=== PATIENT | male | born 1975 | race Two or more races ===

== ENCOUNTER → 2019-01-02 | Outpatient (CLI) | payer MEDICARE, MEDICAID ==
[~2019-01-02] MED LIST: FLUO10CA15 PO; LAMO25TA2 PO; QUET25TA37 PO
[2019-01-02 12:15] LABS: Basophils # (auto) 0.1 uL; Eosinophils # (auto) 0.3 uL; Eosinophils % (auto) 5.7 % (0.0-7.0); Hemoglobin 13.3 g/dL (13.5-17.5); Monocytes # (auto) 0.7 uL; Red Cell Distribution Width 13.8 % (11.8-14.3); Urine Bacteria NONE SEEN /hpf (None Seen); Urine Blood 2+ /uL (Negative); Urine Hyaline Cast FEW /lpf (0 - 2); Urine Mucus FEW (None Seen); Urine Specific Gravity 1.023 (1.001-1.035); Urine WBC 4 /hpf (0 - 3); White Blood Cell 5.4 10^3/uL (4.4-10.8)
[2019-01-02 12:17] LABS: Basophils % (auto) 1.3 % (0.0-2.0); Hematocrit 42.1 % (41.0-53.0); Lymphocytes % (auto) 36.5 % (10.0-50.0); Mean Corpuscular Hemoglobin 22.3 pg (28.0-32.0); Mean Corpuscular Hgb Conc. 31.5 g/dL (32.0-36.0); Mean Corpuscular Volume 70.8 fL (80.0-100.0); Monocytes % (auto) 13.7 % (0.0-12.0); Neutrophils # (auto) 2.3 uL; Neutrophils % (auto) 42.8 % (37.0-80.0); Nucleated Red Blood Cells % 0.2 %; Platelet Count (auto) 251 10^3/uL (140-450); Red Blood Cells 5.95 10^6/uL (4.5-5.90)
[2019-01-02 13:25] LABS: % Iron Saturation 15.5 % (20-55)
[2019-01-02 13:32] LABS: Potassium 3.6 mmol/L (3.5-5.1)
[2019-01-02 13:44] LABS: Albumin 4.4 g/dL (3.4-5.0); BUN/Creatinine Ratio 11.5; Calcium 8.7 mg/dL (8.5-10.1)
[2019-01-02 13:52] LABS: Bilirubin, Total 0.3 mg/dL (0.2-1.0); Total Protein 7.5 g/dL (6.4-8.2)
[2019-01-02 14:48] LABS: Protein, Urine 28.4 mg/dL (0.0-11.9)
== END | disposition home or self-care (01) ==
LOC: LAB 11:32
PROVIDERS: ATTEND Internal Medicine Nephrology
DX: D50.9 Iron deficiency anemia, unspecified (principal); R31.9 Hematuria, unspecified; R79.89 Other specified abnormal findings of blood chemistry; R94.6 Abnormal results of thyroid function studies
CPT/HCPCS: 36415; 80053; 80061; 81001; 82570; 83036; 83540; 83550; 84156; 84443; 85025

== ENCOUNTER → 2019-02-05 | Outpatient (CLI) | payer MEDICARE, MEDICAID ==
[2019-02-05 13:30] LABS: Magnesium 2.3 mg/dL (1.6-2.6); Phosphorus 2.8 mg/dL (2.5-4.90); Uric Acid 8.1 mg/dL (3.5-7.2)
== END | disposition home or self-care (01) ==
LOC: LAB 12:05
PROVIDERS: ATTEND Internal Medicine Nephrology
DX: N20.0 Calculus of kidney (principal); E03.9 Hypothyroidism, unspecified; Z79.899 Other long term (current) drug therapy
CPT/HCPCS: 36415; 83735; 84100; 84439; 84443; 84550

== ENCOUNTER → 2019-02-14 | Outpatient (CLI) | payer MEDICARE, MEDICAID | END | disposition home or self-care (01) | LOC: LAB 13:06 | PROVIDERS: ATTEND Internal Medicine Nephrology | DX: N20.0 Calculus of kidney (principal); E03.9 Hypothyroidism, unspecified | CPT/HCPCS: 82507 ==

== ENCOUNTER 2020-02-12 01:39 | Inpatient (IN) | payer MEDICARE, MEDICAID ==
[~2020-02-12] VITALS: Ht 175.3 cm; Wt 77.3 kg
[2020-02-12 02:22] LABS: Basophils # (auto) 0.1 10 ^3/uL (0-0.2); Basophils % (auto) 0.6 % (0.0-2.0); Eosinophils # (auto) 0.1 10 ^3/uL (0-0.8); Eosinophils % (auto) 0.4 % (0.0-7.0); Mean Corpuscular Hgb Conc. 31.2 g/dL (32.0-36.0); Nucleated Red Blood Cells % 0.1 %; White Blood Cell 15.3 10^3/uL (4.4-10.8)
[2020-02-12 02:23] LABS: Hematocrit 47.5 % (41.0-53.0); Hemoglobin 14.8 g/dL (13.5-17.5); Lymphocytes # (auto) 1.1 10 ^3/uL (0.4-5.4); Lymphocytes % (auto) 7.2 % (10.0-50.0); Mean Corpuscular Hemoglobin 21.8 pg (28.0-32.0); Monocytes # (auto) 1.4 10 ^3/uL (0-1.3); Monocytes % (auto) 9.3 % (0.0-12.0); Neutrophils # (auto) 12.6 10 ^3/uL (1.6-8.6); Neutrophils % (auto) 82.5 % (37.0-80.0); Platelet Count (auto) 299 10^3/uL (140-450); Red Blood Cells 6.78 10^6/uL (4.5-5.90); Red Cell Distribution Width 13.7 % (11.8-14.3)
[2020-02-12 02:25] LABS: Urine Bacteria NONE SEEN /hpf (None Seen); Urine Blood 1+ /uL (Negative); Urine Mucus FEW (None Seen); Urine Specific Gravity 1.018 (1.001-1.035); Urine Sperm PRESENT /hpf (None Seen); Urine WBC 4 /hpf (0 - 3)
[2020-02-12 02:43] LABS: Albumin 4.6 g/dL (3.4-5.0); Calcium 9.3 mg/dL (8.5-10.1); Potassium 4.1 mmol/L (3.5-5.1)
[2020-02-12 02:47] LABS: BUN/Creatinine Ratio 6.3; Bilirubin, Total 0.8 mg/dL (0.2-1.0); Total Protein 8.4 g/dL (6.4-8.2)
[2020-02-12] MEDS ORDERED: PIPERACILLIN-TAZOB 3.375GM 100 ML IV ONE (04:15)
[2020-02-12] MEDS ORDERED: MORPHINE SULFATE 4 MG/ML SYR/VIAL IV ONE (04:15)
[2020-02-12] MEDS ORDERED: ONDANSETRON HCL 4 MG/2 ML VIAL IV ONE (04:15)
[2020-02-12] MEDS ORDERED: metroNIDAZOLE 500MG/100ML 100 ML IV ONE (04:15)
[2020-02-12] MEDS ORDERED: SODIUM CHLORIDE 0.9% 1,000 ML IV ONE ×2 (04:15→19:30)
[2020-02-12 05:03] LABS: INR 0.97 (0.9-1.15); Partial Thromboplastin Time 29.6 sec (23.0-31.2)
[2020-02-12] MEDS ORDERED: SODIUM CHLORIDE 0.9% 1,000 ML IV SCH (07:45)
[2020-02-12] MEDS ORDERED: ONDANSETRON HCL 4 MG/2 ML VIAL IV PRN ×2 (07:45→12:00)
[2020-02-12] MEDS: SODIUM CHLORIDE 0.9% 1,000 ML IV SCH ×2 (08:03→23:22)
[2020-02-12] MEDS: cefTRIAXone 1GM/50ML D5W 50 ML IV SCH (08:09)
[2020-02-12] MEDS: MORPHINE SULF INJ 2 MG/ML SYRINGE 1ML IV PRN ×4 (08:10→23:29)
[2020-02-12 09:00] VITALS: BP 144/81
--- NOTE | 2020-02-12 09:30 | NUR ---
Telemetry admit from ER EMIGDIO HANSON admitted to Telemetry unit after SBAR received. Patient oriented to MARSHAL CHUNG RN primary RN, unit, room, bed, and unit policies regarding patient care and visiting hours. Patient weighed by bedscale and encouraged to call if they need something. All questions and concerns addressed, patient verbalized understanding.
[2020-02-12 09:59] VITALS: BP 144/81
[2020-02-12] MEDS: PANTOPRAZOLE 40 MG/10 ML VIAL INJ IV SCH (10:00)
--- NOTE | 2020-02-12 10:00 | NUR ---
Off unit down to surgery.
[2020-02-12] MEDS ORDERED: ceFAZolin 1GM/50ML 50 ML IV ONE (10:12)
[2020-02-12] MEDS ORDERED: SUCCINYLCHOLINE CHLORIDE 20 MG/ML 10ML VIAL IV ONE (10:30)
[2020-02-12] MEDS ORDERED: NEOSTIGMINE 1 MG/ML INJ (10mg/10ML VIAL) IV ONE (10:30)
[2020-02-12] MEDS ORDERED: GLYCOPYRROLATE 0.2 MG/ML 1ML VIAL IV ONE (10:30)
[2020-02-12] MEDS ORDERED: fentaNYL CITRATE 100 MCG/2 ML VL ONE ×2 (10:44→11:54)
[2020-02-12] MEDS ORDERED: ROCURONIUM 10MG/ML 10ML VIAL IV ONE (10:44)
[2020-02-12] MEDS ORDERED: MIDAZOLAM HCL 1MG/1ML-2 ML VIAL ONE (10:44)
[2020-02-12] MEDS ORDERED: PROPOFOL 10 MG/ML 20 ML IV ONE (10:49)
[2020-02-12] MEDS ORDERED: QUET200T44 PO (11:02)
[2020-02-12] MEDS ORDERED: FLUO1TAB14 PO (11:02)
[2020-02-12] MEDS ORDERED: LAMO200T34 PO (11:02)
[2020-02-12] MEDS ORDERED: HYDROmorphone HCL 2 MG/ML VL ONE (11:16)
[2020-02-12] MEDS ORDERED: hydrALAZINE HCL 20 MG/ML VL IV PRN (12:00)
[2020-02-12] MEDS ORDERED: ePHEDrine SULFATE 50 MG/ML AMP IV PRN (12:00)
[2020-02-12] MEDS ORDERED: HYDROmorphone HCL 2 MG/ML VL IV PRN ×2 (12:00)
[2020-02-12 13:00] VITALS: BP 140/83
[2020-02-12] MEDS ORDERED: metroNIDAZOLE 500MG/100ML 100 ML IV SCH (14:00)
[2020-02-12] MEDS: metroNIDAZOLE 500MG/100ML 100 ML IV SCH ×2 (15:04→23:22)
[2020-02-12 17:00] VITALS: BP 148/95
[2020-02-12] MEDS ORDERED: MANNITOL FTV 25% 12.5 GM/50 ML 50 ML IV ONE (18:30)
[2020-02-12] MEDS ORDERED: TAMSULOSIN HYDROCHLORIDE 0.4 MG CAP PO ONE (18:30)
--- NOTE | 2020-02-12 19:15 | NUR ---
Opening Shift Note Assumed care of patient, awake and alert x4. No S/S of distress/SOB. POC explained to patient and all questions and concerns addressed. Bed in lowest, locked position and call light within reach. Will continue care. Instructed on POC and to call for assist PRN, will continue to monitor for changes Q1hr and PRN.
[2020-02-12 22:08] VITALS: BP 132/94
--- NOTE | 2020-02-12 23:29 | NUR ---
Pain medication given at pain score of 8/10. Patient tolerated.
--- NOTE | 2020-02-13 02:35 | NUR ---
Patient asleep right now. No Sob and acute distress seen.
[2020-02-13] MEDS: MORPHINE SULF INJ 2 MG/ML SYRINGE 1ML IV PRN ×4 (03:53→22:19)
[2020-02-13 05:00] VITALS: BP 143/91
[2020-02-13] MEDS: metroNIDAZOLE 500MG/100ML 100 ML IV SCH ×3 (05:23→22:18)
[2020-02-13 06:11] LABS: Calcium 8.3 mg/dL (8.5-10.1); Potassium 3.5 mmol/L (3.5-5.1)
[2020-02-13 06:14] LABS: BUN/Creatinine Ratio 8.9
--- NOTE | 2020-02-13 06:48 | NUR ---
Closing Shift Event Patient resting in bed. No SOB and cute distress seen. Bed in low position, non skid socks in place, call light within reach.
[2020-02-13 06:56] LABS: Basophils # (auto) 0 10 ^3/uL (0-0.2); Eosinophils # (auto) 0 10 ^3/uL (0-0.8); Mean Corpuscular Hemoglobin 22.1 pg (28.0-32.0)
[2020-02-13 06:58] LABS: Basophils % (auto) 0.1 % (0.0-2.0); Hematocrit 41.7 % (41.0-53.0); Lymphocytes # (auto) 0.7 10 ^3/uL (0.4-5.4); Lymphocytes % (auto) 5.3 % (10.0-50.0); Mean Corpuscular Hgb Conc. 31.3 g/dL (32.0-36.0); Mean Corpuscular Volume 70.6 fL (80.0-100.0); Monocytes # (auto) 1.2 10 ^3/uL (0-1.3); Monocytes % (auto) 9.1 % (0.0-12.0); Neutrophils % (auto) 85.5 % (37.0-80.0); Nucleated Red Blood Cells % 0.2 %; Platelet Count (auto) 212 10^3/uL (140-450); Red Blood Cells 5.91 10^6/uL (4.5-5.90); Red Cell Distribution Width 14.2 % (11.8-14.3); White Blood Cell 12.8 10^3/uL (4.4-10.8)
--- NOTE | 2020-02-13 07:20 | NUR ---
Opening shift note Assumed care patient in bed AOx4. No complains of pain at this time. Dressing to abdominal area s/p open appendectomy on 02/12/20 clean, dry, and intact. Abdominal binder in place. JEAN PAUL drain notice to have serosanguineous discharge. Patient updated on POC and to call for assistance.
[2020-02-13 09:00] VITALS: BP 156/97
[2020-02-13] MEDS ORDERED: cefTRIAXone 1GM/50ML D5W 50 ML IV SCH (09:00)
[2020-02-13] MEDS: cefTRIAXone 1GM/50ML D5W 50 ML IV SCH (09:30)
[2020-02-13] MEDS: PANTOPRAZOLE 40 MG/10 ML VIAL INJ IV SCH (09:31)
--- NOTE | 2020-02-13 12:00 | NUR ---
Patient unwilling to ambulate Attempts have been made to encourage and assist patient to ambulate. Patient continues to refuse ambulation at this time. Patient educated on importance of ambulating and getting up and moving after surgery to prevent the development of Pneumonia, DVT, constipation. Patient verbalizes understanding but continues to refuse. Reinforcement will be needed.
[2020-02-13 13:00] VITALS: BP 148/88
[2020-02-13] MEDS: SOD CHL 0.9%/ KCL 20MEQ 1,000 ML IV SCH (13:13)
[2020-02-13 16:22] VITALS: BP 160/93
--- NOTE | 2020-02-13 18:00 | NUR ---
Patient continues to refuse ambulation.
[2020-02-13] MEDS: TAMSULOSIN HYDROCHLORIDE 0.4 MG CAP PO SCH (18:33)
--- NOTE | 2020-02-13 19:00 | NUR ---
JEAN PAUL DRAIN OUTPUT 100 ML of serosanguineous fluid emptied from JEAN PAUL drain during shift.
--- NOTE | 2020-02-13 19:05 | NUR ---
Opening Shift report Assumed care patient in bed AOx4. No complains of pain at this time. Dressing to abdominal area s/p open appendectomy on 02/12/20 clean, dry, and intact. Abdominal binder in place. JEAN PAUL drain notice to have serosanguineous discharge. Patient updated on POC and to call for assistance. Bed in low position, call light within reach. Instructed on POC and to call for assist PRN, will continue to monitor for changes Q1hr and PRN.
--- NOTE | 2020-02-13 20:00 | NUR ---
Encouraged patient to ambulate, turn from his side to side, use incentive spirometry when awake, extremities exercises and stretching while on bed. Patient been compliant, agreed and verbalized understanding.
[2020-02-13 21:00] VITALS: BP 143/87
[2020-02-14] MEDS: MORPHINE SULF INJ 2 MG/ML SYRINGE 1ML IV PRN ×5 (02:56→23:53)
[2020-02-14] MEDS: SOD CHL 0.9%/ KCL 20MEQ 1,000 ML IV SCH ×2 (04:29→14:43)
[2020-02-14 05:00] VITALS: BP 151/94
[2020-02-14] MEDS: metroNIDAZOLE 500MG/100ML 100 ML IV SCH ×3 (05:25→21:44)
--- NOTE | 2020-02-14 06:21 | NUR ---
JEAN PAUL DRAIN OUTPUT 100 ML of serosanguineous fluid emptied from JEAN PAUL drain.
--- NOTE | 2020-02-14 07:00 | NUR ---
CLOSING SHIFT REPORT PATIENT ASLEEP. NO SOB AND SIGNS OF DISTRESS. BED IN LOW POSITION, LOCKED IN POSITION, CALL LIGHT WITHIN REACH, NON SKID SOCKS ON.
--- NOTE | 2020-02-14 08:00 | NUR ---
Opening Shift Note Assumed care of patient, awake and alert. No S/S of distress/SOB, with mid abdominal incision S/P open appendectomy dressing dry and intact. 4/10 pain rate as stated. JEAN PAUL drain in placed draining to serosanguinous output. Abdominal binder in placed. Instructed on POC and to call for assist PRN, will continue to monitor for changes Q1hr and PRN.
[2020-02-14] MEDS ORDERED: hydrALAZINE HCL 10 MG TAB PO PRN (08:30)
[2020-02-14 09:00] VITALS: BP 151/91
[2020-02-14] MEDS: PANTOPRAZOLE 40 MG/10 ML VIAL INJ IV SCH (10:05)
[2020-02-14] MEDS: cefTRIAXone 1GM/50ML D5W 50 ML IV SCH (10:06)
[2020-02-14] MEDS ORDERED: SODIUM CHLORIDE 0.9% 1,000 ML IV ONE (10:45)
[2020-02-14] MEDS ORDERED: MANNITOL FTV 25% 12.5 GM/50 ML 50 ML IV ONE (10:45)
--- NOTE | 2020-02-14 11:47 | NUR ---
Patient ambulated to the hallway with minimal assistance, then back to bed. Patient stated passing out gas. Referred to Dr. Corona for diet orders and orders received.
--- NOTE | 2020-02-14 11:47 | NUR ---
Nutrition Assessment Notes please see attached link for complete assessment Est energy needs BW [id number] kcal (23-25 kcal/kg BW), Est protein needs 79-94g (1-1.2 g/kg BW). Will reassess prn. Addendum: 02/14/20 at [address] Amended: Links added.
[2020-02-14 13:00] VITALS: BP 151/88
--- NOTE | 2020-02-14 15:25 | NUR ---
Received a call from microbiology, patient is positive for MRSA on the wound right leg. Dr. Linda made aware with instructions received to continue with IV antibiotics. Patient was placed on contact isolation and move to room 283. Addendum: 02/14/20 at 1914 by Fransisca Ruby RN wrong entry.
[2020-02-14 17:00] VITALS: BP 154/94
[2020-02-14] MEDS: TAMSULOSIN HYDROCHLORIDE 0.4 MG CAP PO SCH (17:27)
--- NOTE | 2020-02-14 19:15 | NUR ---
Gave reports to pattern chain builder RN.
[2020-02-14 21:00] VITALS: BP_SYST 119; BP_SYST 149; BP_DIAS 74; BP_DIAS 97
[2020-02-15] MEDS: SOD CHL 0.9%/ KCL 20MEQ 1,000 ML IV SCH ×2 (03:53→17:05)
[2020-02-15 05:00] VITALS: BP 142/92
[2020-02-15] MEDS: metroNIDAZOLE 500MG/100ML 100 ML IV SCH ×3 (05:45→22:29)
--- NOTE | 2020-02-15 06:44 | NUR ---
Closing Note Patient lying in bed, awake and alert. No s/s of distress. Call light within reach. Will endorse care to dayshift RN. Addendum: 02/15/20 at 0656 by ETHAN MONTEZ RN RN ADDITION: 250 mL out from JEAN PAUL drain. Drainage progressed from serosanguineous to primarily serous throughout shift.
[2020-02-15 08:00] VITALS: BP 150/95
[2020-02-15 09:00] VITALS: BP 154/95
--- NOTE | 2020-02-15 09:30 | NUR ---
JEAN PAUL DRAIN OUTPUT 100 ML of serosanguineous fluid emptied from JEAN PAUL drain.
[2020-02-15] MEDS: cefTRIAXone 1GM/50ML D5W 50 ML IV SCH (09:44)
[2020-02-15] MEDS: PANTOPRAZOLE 40 MG/10 ML VIAL INJ IV SCH (09:45)
[2020-02-15] MEDS: MORPHINE SULF INJ 2 MG/ML SYRINGE 1ML IV PRN (10:12)
[2020-02-15 13:00] VITALS: BP 150/96
[2020-02-15] MEDS: HYDROcodone-ACET 5/325MG TAB PO PRN ×2 (13:08→18:58)
[2020-02-15 17:00] VITALS: BP 148/94
[2020-02-15] MEDS: TAMSULOSIN HYDROCHLORIDE 0.4 MG CAP PO SCH (18:58)
--- NOTE | 2020-02-15 18:59 | NUR ---
JEAN PAUL DRAIN OUTPUT 90 ML of serosanguineous fluid emptied from JEAN PAUL drain.
--- NOTE | 2020-02-15 18:59 | NUR ---
PATIENT C/O ABDOMINAL PAIN, RATES IT /10. MEDICATED PER MD ORDERS.
--- NOTE | 2020-02-15 19:00 | NUR ---
CLOSING SHIFT REPORT PATIENT ASLEEP. NO S/S OF DISTRESS/SOB NOTED/STATED. BED IN LOCKED/LOW POSITION, CALL LIGHT WITHIN REACH. WILL ENDORSE CARE TO NOC RN.
[2020-02-15 22:11] VITALS: BP 144/94
--- NOTE | 2020-02-15 22:15 | NUR ---
Patient reporting 6/10 abdominal pain, requesting pain medication. Patient informed by this RN ordered [place] not due yet, nonpharmacological pain relief options explained to patient (hot packs, distraction), patient also aware this RN can page construction services technician hospitalist regarding pain. Patient stated, "It's ok, I can wait." Patient instructed to use call light to inform staff if he changes his mind, patient verbalized understanding. Will continue care.
[2020-02-16] MEDS: HYDROcodone-ACET 5/325MG TAB PO PRN ×3 (01:20→17:30)
[2020-02-16 05:00] VITALS: BP 145/89
[2020-02-16] MEDS: metroNIDAZOLE 500MG/100ML 100 ML IV SCH ×3 (05:29→22:40)
[2020-02-16] MEDS: SOD CHL 0.9%/ KCL 20MEQ 1,000 ML IV SCH ×2 (05:29→22:39)
--- NOTE | 2020-02-16 06:41 | NUR ---
Closing Note Patient lying in bed, awake and alert. No s/s of distress. Call light within reach. Will endorse care to dayshift DARSHAN. Addendum: 02/16/20 at 0750 by ETHAN MONTEZ RN RN ADDITION: 75 mL of serosanguineous drainage out from JEAN PAUL drain.
[2020-02-16 08:00] VITALS: BP 139/86
--- NOTE | 2020-02-16 08:16 | NUR ---
Opening Shift Note Assumed care of patient, awake and alert. No S/S of distress/SOB or pain. Instructed on POC and to call for assist PRN, will continue to monitor for changes Q1hr and PRN.
[2020-02-16 09:00] VITALS: BP 139/86
[2020-02-16] MEDS: cefTRIAXone 1GM/50ML D5W 50 ML IV SCH (09:31)
[2020-02-16] MEDS: PANTOPRAZOLE 40 MG/10 ML VIAL INJ IV SCH (09:31)
--- NOTE | 2020-02-16 09:40 | NUR ---
Patient c/o abdominal pain, rates it 5/10. Administered pain medications per MD orders. Will continue to monitor PRN.
--- NOTE | 2020-02-16 12:49 | NUR ---
Nutrition Followup Note Wt 78.6kg, pt wt is 144.2kg per RN note, pt did not appear to be morbidly obese, using pt previous wt of 78.6kg Pt was alert and oriented at time of rounds. Pt reports appetite is coming back. Pt diet recently advanced to soft diet on 02/13, pt with 1 po intake of 25% and 1 po intake of 75% per RN note. Est energy needs BW [id number] kcal (23-25 kcal/kg BW), Est protein needs 79-94g (1-1.2 g/kg BW). Will reassess prn. Labs: GLuc 130H, Alb 4.6WNL< Ca 8.3L BM: pt with 500 ml gastric drain 02/14 per RN note, no BM noted Skin: BS 18 mod risk, full details in patient care director note PES: Altered nutrition related lab values r.t current chronic medical condition aeb hyperglycemia hypocalcemia Comments 1) advance diet as medically feasible 2) continue current plan of care Expected Outcomes/Goals: pt will advance and vilma po F/u 3-5 days
[2020-02-16 13:00] VITALS: BP 143/86
[2020-02-16 17:25] VITALS: BP 139/87
[2020-02-16] MEDS: TAMSULOSIN HYDROCHLORIDE 0.4 MG CAP PO SCH (17:30)
--- NOTE | 2020-02-16 19:30 | NUR ---
CLOSING SHIFT REPORT PATIENT COMFORTABLY RESTING IN BED NO S/S OF DISTRESS/SOB NOTED/STATED. BED IN LOCKED/LOW POSITION, CALL LIGHT WITHIN REACH. WILL ENDORSE CARE TO NOC RN.
[2020-02-16 21:37] VITALS: BP 139/84
[2020-02-17] MEDS: HYDROcodone-ACET 5/325MG TAB PO PRN (01:07)
[2020-02-17 04:38] VITALS: BP 143/87
[2020-02-17] MEDS: metroNIDAZOLE 500MG/100ML 100 ML IV SCH ×2 (05:16→13:14)
[2020-02-17 06:41] LABS: Basophils # (auto) 0 10 ^3/uL (0-0.2); Mean Corpuscular Hgb Conc. 31.2 g/dL (32.0-36.0)
[2020-02-17 06:43] LABS: Basophils % (auto) 0.7 % (0.0-2.0); Eosinophils # (auto) 0.4 10 ^3/uL (0-0.8); Eosinophils % (auto) 5.8 % (0.0-7.0); Hematocrit 42.8 % (41.0-53.0); Hemoglobin 13.4 g/dL (13.5-17.5); Lymphocytes % (auto) 13.9 % (10.0-50.0); Mean Corpuscular Hemoglobin 21.9 pg (28.0-32.0); Monocytes # (auto) 0.7 10 ^3/uL (0-1.3); Neutrophils # (auto) 4.9 10 ^3/uL (1.6-8.6); Neutrophils % (auto) 69.6 % (37.0-80.0); Platelet Count (auto) 355 10^3/uL (140-450); Red Blood Cells 6.11 10^6/uL (4.5-5.90); Red Cell Distribution Width 13.8 % (11.8-14.3); White Blood Cell 7.1 10^3/uL (4.4-10.8)
--- NOTE | 2020-02-17 06:50 | NUR ---
Patient again educated on emptying JEAN PAUL drain and replacing bulb to suction. Patient able to demonstrate correct technique under the supervision of this RN.
--- NOTE | 2020-02-17 06:53 | NUR ---
Closing Note Patient lying in bed, awake and alert. No s/s of distress. Call light within reach. Will endorse care to dayshift RN.
[2020-02-17] MEDS: cefTRIAXone 1GM/50ML D5W 50 ML IV SCH (08:21)
[2020-02-17] MEDS: SOD CHL 0.9%/ KCL 20MEQ 1,000 ML IV SCH (08:21)
--- NOTE | 2020-02-17 08:22 | NUR ---
Patient eating breakfast with no distress noted. Scheduled IV abx given per order. Patient stable.
[2020-02-17 08:23] VITALS: BP 141/84
[2020-02-17 08:35] VITALS: BP 141/84
[2020-02-17] MEDS: PANTOPRAZOLE 40 MG/10 ML VIAL INJ IV SCH (10:19)
--- NOTE | 2020-02-17 10:20 | NUR ---
Scheduled IVP med given per order. Patient stable at this time.
[2020-02-17] MEDS ORDERED: TAM04C PO (11:01)
[2020-02-17] MEDS ORDERED: PANT40TA2 PO (11:04)
[2020-02-17] MEDS ORDERED: IBUP400T21 PO (11:04)
--- NOTE | 2020-02-17 12:15 | NUR ---
Patient resting quietly in bed with no complaint of pain or discomfort. Patient stable.
[2020-02-17 13:00] VITALS: BP 136/84
--- NOTE | 2020-02-17 13:15 | NUR ---
Scheduled IV abx given per order. Patient stable at this time.
--- NOTE | 2020-02-17 14:04 | NUR ---
PT REPORTS THAT HE HAS BEEN WALKING IN [place] WITHOUT ANY ISSUES. PT DENIES NEED FOR P.T.
--- NOTE | 2020-02-17 14:30 | NUR ---
Patient resting comfortably in bed; denies any pain. Patient stable.
[2020-02-17 15:05] VITALS: BP 136/84
[2020-02-17 16:17] VITALS: BP 133/84
--- NOTE | 2020-02-17 16:55 | NUR ---
Discharge instructions Both written and verbal discharge instructions given to patient. Patient verbalized understanding of instructions. JEAN PAUL drain was emptied; patient was instructed how to empty and measure output from JEAN PAUL drain and how to use the incentive spirometer. Patient verbalized understanding. All belongings with patient. Peripheral IV removed intact with no active bleeding; site covered with gauze. Midline abdominal incision with 14 danny was cleansed with NS and covered with gauze. Patient tolerated well. Patient stable.
--- NOTE | 2020-02-17 17:40 | NUR ---
Discharge Patient discharged to home in stable condition.
== END 2020-02-17 17:40 | disposition home or self-care (01) | DRG 853 ==
LOC: ER 01:39 → WEST WING 01:40
PROVIDERS: ADMIT Nurse Practitioner; ATTEND Internal Medicine
PROC: 0WJG4ZZ Inspection of Peritoneal Cavity, Percutaneous Endoscopic Approach (ICD-10-PCS; 2020-02-12)
PROC: 0DTJ0ZZ Resection of Appendix, Open Approach (ICD-10-PCS; principal; 2020-02-12 10:30)
DX: A41.9 Sepsis, unspecified organism (principal); K35.32 Acute appendicitis with perforation, localized peritonitis, and gangrene, without abscess; N17.9 Acute kidney failure, unspecified; N13.2 Hydronephrosis with renal and ureteral calculous obstruction; E66.01 Morbid (severe) obesity due to excess calories; F32.9 Major depressive disorder, single episode, unspecified; Z53.31 Laparoscopic surgical procedure converted to open procedure; Z79.899 Other long term (current) drug therapy; Z87.442 Personal history of urinary calculi; Z90.49 Acquired absence of other specified parts of digestive tract; Z81.8 Family history of other mental and behavioral disorders; Z82.61 Family history of arthritis; Z83.3 Family history of diabetes mellitus; Z80.1 Family history of malignant neoplasm of trachea, bronchus and lung; Z80.42 Family history of malignant neoplasm of prostate; Z82.49 Family history of ischemic heart disease and other diseases of the circulatory system; Z68.25 Body mass index [BMI] 25.0-25.9, adult
CPT/HCPCS: 36415; 71045; 74176; 80048; 80053; 81001; 85025; 85610; 85730; 86850; 86900; 86901; 87086; 93005; 96365; 96368; 96375; C9113; G0378; J0330; J0690; J0696; J2250; J2405; J2543; J2704; J3490

== ENCOUNTER 2020-09-14 06:12 | Day surgery (SDC) | payer MEDICARE, MEDICAID ==
[2020-09-11 11:33] LABS: Basophils # (auto) 0.1 10 ^3/uL (0-0.2); Eosinophils # (auto) 0.2 10 ^3/uL (0-0.8); Hematocrit 41.2 % (41.0-53.0); Hemoglobin 12.7 g/dL (13.5-17.5); Lymphocytes # (auto) 1.9 10 ^3/uL (0.4-5.4); Mean Corpuscular Hgb Conc. 30.8 g/dL (32.0-36.0); Monocytes # (auto) 0.9 10 ^3/uL (0-1.3); Neutrophils # (auto) 3.8 10 ^3/uL (1.6-8.6); White Blood Cell 6.9 10^3/uL (4.4-10.8)
[2020-09-11 11:34] LABS: Basophils % (auto) 0.9 % (0.0-2.0); Eosinophils % (auto) 3.6 % (0.0-7.0); Lymphocytes % (auto) 27.9 % (10.0-50.0); Mean Corpuscular Hemoglobin 21.7 pg (28.0-32.0); Mean Corpuscular Volume 70.3 fL (80.0-100.0); Monocytes % (auto) 12.7 % (0.0-12.0); Neutrophils % (auto) 54.9 % (37.0-80.0); Platelet Count (auto) 273 10^3/uL (140-450); Red Blood Cells 5.86 10^6/uL (4.5-5.90); Red Cell Distribution Width 14.1 % (11.8-14.3)
[2020-09-11 11:57] LABS: Urine Bacteria FEW /hpf (None Seen); Urine Blood Negative /uL (Negative); Urine Mucus FEW (None Seen); Urine Specific Gravity 1.024 (1.001-1.035); Urine WBC 17 /hpf (0 - 3)
[2020-09-11 11:59] LABS: INR 0.94 (0.9-1.15); Partial Thromboplastin Time 28.8 sec (23.0-31.2)
[2020-09-11 12:31] LABS: Albumin 4.3 g/dL (3.4-5.0); Calcium 8.8 mg/dL (8.5-10.1); Potassium 3.8 mmol/L (3.5-5.1)
[2020-09-11 12:36] LABS: BUN/Creatinine Ratio 14.8; Bilirubin, Total 0.3 mg/dL (0.2-1.0); Total Protein 7.9 g/dL (6.4-8.2)
[~2020-09-14] VITALS: Ht 175.3 cm; Wt 77.1 kg
[~2020-09-14 06:12] MED LIST changes: -FLUO10CA15 PO; +FLUO1TAB14 PO; +IBUP400T22 PO; +LAMO200T34 PO; -LAMO25TA2 PO; +PANT40TA2 PO; +QUET200T44 PO; -QUET25TA37 PO; +TAM04C PO
[2020-09-14] MEDS ORDERED: ceFAZolin 1GM/50ML 50 ML IV ONE (07:03)
[2020-09-14] MEDS ORDERED: fentaNYL CITRATE 100 MCG/2 ML VL ONE (07:08)
[2020-09-14] MEDS ORDERED: MEPERIDINE HCL (50 MG/ML) 1 ML VIAL ONE (07:09)
[2020-09-14] MEDS ORDERED: MIDAZOLAM HCL 1MG/1ML-2 ML VIAL ONE (07:09)
[2020-09-14] MEDS ORDERED: PROPOFOL 10 MG/ML 20 ML IV ONE (07:14)
[2020-09-14] MEDS ORDERED: DexAMETHasone SOD PHOS 10MG/1ML VIAL INJ ONE (07:14)
[2020-09-14] MEDS ORDERED: LABETALOL HCL 5 MG/ML 4ML SYRINGE IV PRN (08:00)
[2020-09-14] MEDS ORDERED: ONDANSETRON HCL 4 MG/2 ML VIAL IV PRN (08:00)
[2020-09-14] MEDS ORDERED: KETOROLAC TROMETH 30 MG/ML 1ML VIAL IV ONE (08:00)
[2020-09-14] MEDS ORDERED: ePHEDrine SULFATE 50 MG/ML AMP IV PRN (08:00)
[2020-09-14] MEDS ORDERED: HYDROmorphone HCL 2 MG/ML VL IV PRN (08:00)
[2020-09-14] MEDS ORDERED: MIDAZOLAM HCL 1MG/1ML-2 ML VIAL IV PRN (08:00)
[2020-09-14] MEDS ORDERED: MORPHINE SULF INJ 2 MG/ML SYRINGE 1ML IV PRN (08:00)
[2020-09-14 09:50] VITALS: BP 136/79
== END 2020-09-14 10:00 | disposition home or self-care (01) ==
LOC: SUR 06:12
PROVIDERS: ATTEND Urology
DX: N20.1 Calculus of ureter (principal); F32.9 Major depressive disorder, single episode, unspecified; I10 Essential (primary) hypertension; F31.89 Other bipolar disorder; M10.9 Gout, unspecified; F41.9 Anxiety disorder, unspecified; F99 Mental disorder, not otherwise specified; Z20.822 Contact with and (suspected) exposure to COVID-19; Z88.8 Allergy status to other drugs, medicaments and biological substances; Z79.899 Other long term (current) drug therapy
CPT/HCPCS: 36415; 50590; 80053; 81001; 85025; 85610; 85730; J0690; J1100; J2175; J2250; J2704; J3010; U0003

== ENCOUNTER 2021-08-30 14:07 | Emergency (ER) | payer MEDICARE, MEDICAID ==
[~2021-08-30] VITALS: Ht 175.3 cm; Wt 80.3 kg
[~2021-08-30 14:07] MED LIST changes: -QUET200T44 PO; +QUET200T45 PO
[2021-08-30] MEDS ORDERED: COLCHICINE 0.6 MG CAP PO ONE (19:00)
[2021-08-30] MEDS ORDERED: COLC1TAB3 PO (19:09)
[2021-08-30 20:36] VITALS: BP 133/68
== END 2021-08-30 20:40 | disposition home or self-care (01) ==
LOC: ER 14:07
DX: M10.9 Gout, unspecified (principal); Z79.1 Long term (current) use of non-steroidal anti-inflammatories (NSAID); Z79.899 Other long term (current) drug therapy
CPT/HCPCS: 36415; 84550